=== PATIENT | female | born 1975 | race Hispanic/Latino ===

== ENCOUNTER 2021-09-06 12:41 | Emergency (ER) | payer OTHER ==
[2021-09-06] MEDS ORDERED: IBUPROFEN 200 MG TAB PO ONE (15:19)
[2021-09-06] MEDS ORDERED: FAMOTIDINE 20 MG TAB ONE (15:19)
--- NOTE | 2021-09-06 15:40 | ER ---
Nurse's Notes [facility] Name: Kandis Doyle Age: 46 yrs Sex: Female : 1975 Arrival Date: 09/06/2021 Time: 12:44 Bed DIS7 Private MD: Diagnosis: SARS-associated coronavirus as the cause of diseases classified elsewhere Presentation: 09/06 12:49 Chief complaint: Patient states: Sore throat, body aches and headache that began 3 days ss ago. Coronavirus screen: Client presents with at least one sign or symptom that may indicate coronavirus-19. Ebola Screen: Patient denies exposure to infectious person. Patient denies travel to an Ebola-affected area in the 21 days before illness onset. Initial Sepsis Screen: Does the patient meet any 2 criteria? No. Patient's initial sepsis screen is negative. Does the patient have a suspected source of infection? No. Patient's initial sepsis screen is negative. Risk Assessment: Do you want to hurt yourself or someone else? Patient reports no desire to harm self or others. Onset of symptoms was September 03, 2021. 12:49 Method Of Arrival: Ambulatory ss 12:49 Acuity: IRA 4 ss Historical: - Allergies: 12:51 No Known Allergies; ss - Home Meds: 12:51 None [Active]; ss - PMHx: 12:51 None; ss - PSHx: 12:51 section; ss - Immunization history:: Client reports receiving the 2nd dose of the Covid vaccine. - Social history:: Smoking status: Patient denies any tobacco usage or history of. Screenin:00 Abuse screen: Denies threats or abuse. Denies injuries from another. Nutritional ss screening: No deficits noted. Tuberculosis screening: Never had TB. Fall Risk None identified. Assessment: 13:00 General: Behavior is calm, cooperative, Reports fever for 2-3 days, feeling ill for 2-3 ss days. Pain: Complains of pain in abdomen, body aches Pain currently is 7 out of 10 on a pain scale. Quality of pain is described as aching, Is continuous. Neuro: Pike Agitation-Sedation Scale (RASS): 0 - Alert and Calm Level of Consciousness is awake, alert, obeys commands, Oriented to person, place, time, situation. Cardiovascular: Capillary refill < 3 seconds is brisk in bilateral fingers Patient's skin is warm and dry. Respiratory: Airway is patent Respiratory effort is even, unlabored, Respiratory pattern is regular, symmetrical. GI: Patient currently denies diarrhea, nausea, vomiting. GI: Abd is soft and non tender X 4 quads. : Denies burning with urination, urinary frequency. Derm: Skin is intact, is healthy with good turgor, Skin is pink, warm \T\ dry. normal. Musculoskeletal: Circulation, motion, and sensation intact. Range of motion: intact in all extremities, Swelling absent. Vital Signs: 12:49 BP 117 / 69; Pulse 86; Resp 14; Temp 98.6(TE); Pulse Ox 99% ; Weight 63.5 kg; Height 5 ss ft. 2 in. (157.48 cm); Pain 7/10; 12:49 Body Mass Index 25.60 (63.50 kg, 157.48 cm) ss ED Course: 12:44 Patient arrived in ED. mr 12:48 Anish Ponce MD is Attending Physician. kdr 12:51 Triage completed. ss 12:51 Arm band placed on right wrist. ss 13:00 Connie Cochran, AMALIA is Primary Nurse. ss 13:00 Patient has correct armband on for positive identification. Bed in low position. Call ss light in reach. 15:48 No provider procedures requiring assistance completed. Patient did not have IV access ss during this emergency room visit. Administered Medications: 15:14 Drug: Pepcid (famotidine) 20 mg Route: PO; ss 15:48 Follow up: Response: No adverse reaction ss 15:14 Not Given (Patient Refused): Ondansetron 4 mg PO once ss 15:14 Drug: Ibuprofen 600 mg Route: PO; ss 15:48 Follow up: Response: No adverse reaction ss Medication: 13:00 VIS not applicable for this client. ss Outcome: 15:39 Discharge ordered by . kdr 15:48 Discharged to home ambulatory. ss 15:48 Condition: good 15:48 Discharge instructions given to patient, family, Instructed on discharge instructions, follow up and referral plans. medication usage, Demonstrated understanding of instructions, follow-up care, medications, Prescriptions given X 3. 15:49 Patient left the ED. ss Signatures: Anish Ponce MD MD [facility] KunzEmilee mr Connie Cochran, RN RN ss Corrections: (The following items were deleted from the chart) 13:01 12:49 63.5 kg; Height 5 ft. 2 in.; BMI: 25.6; Pain 7/10; ss ss 14:21 12:49 BP 117 / 49; Pulse 86bpm; Resp 14bpm; Pulse Ox 99%; Temp 98.6F Temporal; 63.5 kg; ss Height 5 ft. 2 in.; BMI: 25.6; Pain 7/10; ss
--- NOTE | 2021-09-06 15:40 | EDPHYS ---
Physician Documentation [facility] Name: Kandis Doyle Age: 46 yrs Sex: Female : 1975 Arrival Date: 09/06/2021 Time: 12:44 Bed DIS7 Private MD: ED Physician Anish Ponce HPI: 09/06 18:20 This 46 yrs old Female presents to ER via Ambulatory with complaints of kdr Abdominal Pain, Sore Throat, Body aches. 18:21 Patient has had upper respiratory symptoms for the past 3 days. This has included sore kdr throat, body ache and headache. Patient is otherwise in good health and nontoxic-appearing. Onset: The symptoms/episode began/occurred gradually, 3 day(s) ago. Severity of symptoms: At their worst the symptoms were mild moderate in the emergency department the symptoms are unchanged. The patient has not experienced similar symptoms in the past. The patient has not recently seen a physician. Historical: - Allergies: 12:51 No Known Allergies; ss - Home Meds: 12:51 None [Active]; ss - PMHx: 12:51 None; ss - PSHx: 12:51 section; ss - Immunization history:: Client reports receiving the 2nd dose of the Covid vaccine. - Social history:: Smoking status: Patient denies any tobacco usage or history of. ROS: 18:21 Constitutional: Negative for fever, chills, and weight loss, Eyes: Negative for injury, kdr pain, redness, and discharge, Neck: Negative for injury, pain, and swelling, Cardiovascular: Negative for chest pain, palpitations, and edema, Abdomen/GI: Negative for abdominal pain, nausea, vomiting, diarrhea, and constipation, Back: Negative for injury and pain, : Negative for injury, bleeding, discharge, and swelling, MS/Extremity: Negative for injury and deformity, Skin: Negative for injury, rash, and discoloration, Neuro: Negative for headache, weakness, numbness, tingling, and seizure activity. Psych: Negative for depression, anxiety, suicide ideation, homicidal ideation, and hallucinations, Allergy/Immunology: Negative for hives, rash, and allergies, Endocrine: Negative for neck swelling, polydipsia, polyuria, polyphagia, and marked weight changes, Hematologic/Lymphatic: Negative for swollen nodes, abnormal bleeding, and unusual bruising. 18:21 Constitutional: Positive for body aches, fatigue, malaise, poor PO intake, Negative for chills, fever. 18:21 Respiratory: Positive for cough, with no reported sputum, Negative for dyspnea on exertion, hemoptysis, orthopnea, pleurisy, shortness of breath. Exam: 18:21 Constitutional: This is a well developed, well nourished patient who is awake, alert, kdr and in no acute distress. Head/Face: Normocephalic, atraumatic. Eyes: Pupils equal round and reactive to light, extra-ocular motions intact. Lids and lashes normal. Conjunctiva and sclera are non-icteric and not injected. Cornea within normal limits. Periorbital areas with no swelling, redness, or edema. ENT: Nares patent. No nasal discharge, no septal abnormalities noted. Tympanic membranes are normal and external auditory canals are clear. Oropharynx with no redness, swelling, or masses, exudates, or evidence of obstruction, uvula midline. Mucous membranes moist. Neck: Trachea midline, no thyromegaly or masses palpated, and no cervical lymphadenopathy. Supple, full range of motion without nuchal rigidity, or vertebral point tenderness. No Meningismus. Chest/axilla: Normal chest wall appearance and motion. Nontender with no deformity. No lesions are appreciated. Cardiovascular: Regular rate and rhythm with a normal S1 and S2. No gallops, murmurs, or rubs. Normal PMI, no JVD. No pulse deficits. Respiratory: Lungs have equal breath sounds bilaterally, clear to auscultation and percussion. No rales, rhonchi or wheezes noted. No increased work of breathing, no retractions or nasal flaring. Abdomen/GI: Soft, non-tender, with normal bowel sounds. No distension or tympany. No guarding or rebound. No evidence of tenderness throughout. Back: No spinal tenderness. No costovertebral tenderness. Full range of motion. Skin: Warm, dry with normal turgor. Normal color with no rashes, no lesions, and no evidence of cellulitis. MS/ Extremity: Pulses equal, no cyanosis. Neurovascular intact. Full, normal range of motion. Vital Signs: 12:49 BP 117 / 69; Pulse 86; Resp 14; Temp 98.6(TE); Pulse Ox 99% ; Weight 63.5 kg; Height 5 ss ft. 2 in. (157.48 cm); Pain 7/10; 12:49 Body Mass Index 25.60 (63.50 kg, 157.48 cm) ss MDM: 15:39 Patient medically screened. kdr 18:21 Counseling: I had a detailed discussion with the patient and/or guardian regarding: the kdr historical points, exam findings, and any diagnostic results supporting the discharge/admit diagnosis, lab results, the need for outpatient follow up. 18:23 Data reviewed: vital signs, nurses notes, lab test result(s), radiologic studies. kdr 09/06 12:59 Order name: Flu; Complete Time: 14:53 ss 09/06 12:59 Order name: COVID-19 SARS RT PCR (Document "Date of Onset" if Symptomatic); Complete ss Time: 14:53 Administered Medications: 15:14 Drug: Pepcid (famotidine) 20 mg Route: PO; ss 15:48 Follow up: Response: No adverse reaction ss 15:14 Not Given (Patient Refused): Ondansetron 4 mg PO once ss 15:14 Drug: Ibuprofen 600 mg Route: PO; ss 15:48 Follow up: Response: No adverse reaction ss Disposition Summary: 09/06/21 15:39 Discharge Ordered Location: Home kdr Condition: Stable kdr Diagnosis - SARS-associated coronavirus as the cause of diseases classified elsewhere kdr Followup: kdr - With: Private Physician - When: 2 - 3 days - Reason: If symptoms return, Further diagnostic work-up, Recheck today's complaints, Continuance of care, Re-evaluation by your physician Discharge Instructions: - Discharge Summary Sheet kdr - Form - Excuse from Work, School, or Physical Activity kdr - COVID-19 kdr - Things to Know about the COVID-19 Pandemic - [facility] kdr - 10 Things You Can Do to Manage Your COVID-19 Symptoms at Home - [facility] kdr - Viral Illness, Adult kdr - COVID-19: Quarantine vs. Isolation - [facility] kdr - Prevent the Spread of COVID-19 if You Are Sick - [facility] kdr Forms: - Medication Reconciliation Form kdr - Thank You Letter kdr - Antibiotic Education kdr - Prescription Opioid Use kdr Prescriptions: - Ibuprofen 600 mg Oral Tablet - take 1 tablet by ORAL route every 6 hours As needed take with food; 30 tablet; kdr Refills: 0, Product Selection Permitted - Zofran 4 mg Oral Tablet - take 1 tablet by ORAL route every 12 hours As needed; 6 tablet; Refills: 0, kdr Product Selection Permitted - Pepcid 20 mg Oral Tablet - take 1 tablet by ORAL route every 12 hours for 5 days; 10 tablet; Refills: 0, kdr Product Selection Permitted Signatures: DispAnish Marcial MD MD kdr Smirch, Shelby, RN RN ss
[2021-09-06 16:10] VITALS: BP 117/69; TEMP 98.6; O2SAT 99
== END 2021-09-06 15:49 | disposition home or self-care (01) ==
LOC: ER 12:41
DX: U07.1 COVID-19 (principal)
CPT/HCPCS: 87804 ×2; 99283; U0003